=== PATIENT | male | born 1960 | race Caucasian/White ===

== ENCOUNTER → 2016-11-10 | Outpatient (CLI) | payer OTHER ==
[~2016-11-10] MED LIST: GADOBUTROL 10 ML VIAL IVP ONE
== END ==
LOC: FIMAGING 14:40
PROVIDERS: ATTEND Specialist
DX: C61 Malignant neoplasm of prostate (principal)
CPT/HCPCS: A9585

== ENCOUNTER → 2016-11-11 | Outpatient (CLI) | payer OTHER | LOC: FIMAGING 10:52 | PROVIDERS: ATTEND Specialist | DX: C61 Malignant neoplasm of prostate (principal); Z87.81 Personal history of (healed) traumatic fracture; R93.7 Abnormal findings on diagnostic imaging of other parts of musculoskeletal system | CPT/HCPCS: 78306; A9503 ==

== ENCOUNTER → 2018-12-11 | Outpatient (CLI) | payer OTHER | LOC: FIMAGING 14:59 | PROVIDERS: ATTEND Family Medicine | DX: M50.321 Other cervical disc degeneration at C4-C5 level (principal) ==